=== PATIENT | male | born 1940 | race Caucasian/White ===

== ENCOUNTER 2023-09-22 10:14 | Emergency (ER) | payer MEDICARE, SELFPAY ==
[2023-09-22 10:18] VITALS: BP 175/82
[2023-09-22 10:41] LABS: % Basophils 0.6 % (0-2); % Eosinophils 2.9 % (0-6); % Immature Granulocytes 0.4 % (0-0.5); % Lymphocytes 26.4 % (20.5-51.1); % Monocytes 11.2 % (1.7-9.3); % Neutrophils 58.5 % (42.2-75.2); Absolute Eosinophils 0.2 10^3/uL (0-0.7); Absolute Lymphocytes 1.4 10^3/uL (1.2-3.4); Absolute Monocytes 0.6 10^3/uL (0.1-0.6); Hematocrit 41.4 % (39.0-52.0); Hemoglobin 15.4 g/dL (13.0-18.0); Mean Corp Hgb Conc. 37.2 g/dL (33.0-37.0); Mean Corpuscular Hgb 33.7 pg (27.0-31.0); Mean Corpuscular Volume 90.6 fL (80.0-94.0); Mean Platelet Volume 8.4 fL (7.4-10.4); Nucleated Red Blood Cells % 0 % (-); Platelet Count 110 10^3/uL (130-400); Red Blood Cell Count 4.57 10^6/uL (4.70-6.10); Red Cell Dist. Width 13.2 % (11.5-14.5); White Blood Cell Count 5.2 10^3/uL (4.8-10.8)
[2023-09-22 10:56] LABS: ALT (SGPT) 26 U/L (0-50); AST (SGOT) 30 U/L (17-59); Albumin 4.3 g/dl (3.5-5.0); Alkaline Phosphatase 66 U/L (38-126); Blood Urea Nitrogen 11 mg/dl (9-20); Calcium 9.2 mg/dl (8.4-10.2); Carbon Dioxide 27 mmol/L (22-30); Chloride 105 mmol/L (98-107); Glucose 99 mg/dl (70-99); Potassium 4.5 mmol/L (3.5-5.1); Sodium 137 mmol/L (135-145); Total Protein 7.3 g/dl (6.3-8.2); eGFR > 60.00
[2023-09-22 11:06] LABS: Troponin I < 0.012 ng/ml
--- NOTE | 2023-09-22 16:05 | ED.GENMED ---
History of Present Illness
<Kitty oLpez PA-C - Last Filed: 09/24/23 11:48>
General
Chief Complaint: Chest Pain
Source: patient and spouse
Exam Limitations: none
Time Seen by Provider: 09/22/23 15:36
Nursing documentation reviewed up to this point in time: agreed with
Travel History
Have you had any contact with someone who has COVID-19?: No
Do you have any symptoms of coronavirus? Fever > 100 degrees, chills, cough, shortness of breath, sore throat, loss of taste or smell, muscle aches, or headache?: No
History of Present Illness
History of Present Illness:
Patient is an 82-year-old male with history CAD status post triple bypass in 2005 presenting for evaluation of left-sided chest discomfort. Patient states he initially noticed symptoms this morning around 8:30 AM while he was in the shower. He
describes a pressure type pain in his left chest with some tingling down into his left arm. He sat on a chair to rest and then decided to come to the emergency department for evaluation. Patient states symptoms are ongoing for approximately 3
hours. He denies any associated shortness of breath, back pain, dizziness, diaphoresis, weakness, or nausea/vomiting.
Patient denies any exertional or pleuritic component to pain. Patient denies any recent exertional chest pain.
Of note�patient did have a triple bypass surgery 2005. The blockages found during an outpatient stress test and therefore he was asymptomatic at that time and unable to compare that event to symptoms that occurred this morning.
Past History
<Kitty Lopez PA-C - Last Filed: 09/24/23 11:48>
Past History
ED Past Medical History: CAD and Other (Hyperlipidemia, BPH, CAD, CABG,)
ED Past Surgical History: Cardiac
Social History
Tobacco: Non-smoker
Drug: None
Personal:
Living: with family
Employment: Retired
Review of Systems
<Kitty Lopez PA-C - Last Filed: 09/24/23 11:48>
Review of Systems
Allergies reviewed?: Yes
All Other Systems: ROS reviewed and negative except as documented in HPI and ROS
Phy Exam
<Kitty Lopez PA-C - Last Filed: 09/24/23 11:48>
Physical Exam
Physical Exam:
Vitals: Patient's vital signs are stable. Afebrile
General: Patient is well appearing, no acute distress
Skin: Warm and dry, no rashes or lesions
Head: Normocephalic, atraumatic
Eyes: Sclera nonicteric. EOMs intact. No nystagmus.
Throat: Protecting airway. Uvula midline
Neck: Normal ROM, no cervical spine tenderness, no meningismus
Cardiac: Regular rate and rhythm, no murmurs. Anterior chest wall nontender to palpation
Pulm: Normal respiratory effort, no wheezes, rales, rhonchi heard on exam.
Abdomen: No abdominal tenderness.
Extremities: No evidence of cyanosis or edema. Good distal pulses in bilateral upper and lower extremities
Neuro: AAOx3. CN II-XII intact. No focal neurologic deficits.
Psychiatric: Normal affect.
Scores
<Kitty Lopez PA-C - Last Filed: 09/24/23 11:48>
Heart Score for Chest Pain Patients
STEMI patient?: No
History: Moderately Suspicious
ECG: Normal
Age: >/= 65 years
Risk Factors: >/= 3 Risk Factors or History of CAD
Troponin: </= Normal Limit
Heart Score for Chest Pain Patients: 5
Heart Score Risk: 20.3% MACE over next 6 weeks
Course
<Kitty Lopez PA-C - Last Filed: 09/24/23 11:48>
Orders/Labs/Results
Orders:
Orders
09/22/23 10:18
Electrocardiogram (*1) Urgent
Reason for Study: Chest Pain
EKG- Treatment ONCE
09/22/23 10:28
CMP [Comprehensive Metabolic Panel] Urgent
Complete Blood Count/With Diff Urgent
Troponin I Urgent
09/22/23 16:09
Troponin I Urgent
09/22/23 16:20
CARDIOLOGY CONSULT Urgent
Consulting Provider: Balta Courtney
Was physician already notified: Yes
09/22/23 16:48
Lisinopril [Zestril] 5 mg PO NOW STA
Abnormal Lab Results
09/22/23
10:28
RBC 4.57 L 10^6/uL
(4.70-6.10)
MCH 33.7 H pg
(27.0-31.0)
MCHC 37.2 H g/dL
(33.0-37.0)
Plt Count 110 L 10^3/uL
(130-400)
Monocytes % 11.2 H %
(1.7-9.3)
09/22/23 10:28
09/22/23 10:28
Vital Signs
Initial and Last Documented VS:
Initial Vital Signs
Temp Pulse Resp BP Pulse Ox
98.2 F 61 16 175/82 99
09/22/23 10:18 09/22/23 10:18 09/22/23 10:18 09/22/23 10:18 09/22/23 10:18
Last Documented Vital Signs
Temp Pulse Resp BP Pulse Ox
98.2 F 61 16 158/80 99
09/22/23 10:18 09/22/23 10:18 09/22/23 10:18 09/22/23 17:05 09/22/23 10:18
<Nick Rubin, DO - Last Filed: 09/22/23 23:24>
Orders/Labs/Results
Orders:
Orders
09/22/23 10:18
Electrocardiogram (*1) Urgent
Reason for Study: Chest Pain
EKG- Treatment ONCE
09/22/23 10:28
CMP [Comprehensive Metabolic Panel] Urgent
Complete Blood Count/With Diff Urgent
Troponin I Urgent
09/22/23 16:09
Troponin I Urgent
09/22/23 16:20
CARDIOLOGY CONSULT Urgent
Consulting Provider: Balta Courtney
Was physician already notified: Yes
09/22/23 16:48
Lisinopril [Zestril] 5 mg PO NOW STA
Abnormal Lab Results
09/22/23
10:28
RBC 4.57 L 10^6/uL
(4.70-6.10)
MCH 33.7 H pg
(27.0-31.0)
MCHC 37.2 H g/dL
(33.0-37.0)
Plt Count 110 L 10^3/uL
(130-400)
Monocytes % 11.2 H %
(1.7-9.3)
09/22/23 10:28
09/22/23 10:28
Vital Signs
Initial and Last Documented VS:
Initial Vital Signs
Temp Pulse Resp BP Pulse Ox
98.2 F 61 16 175/82 99
09/22/23 10:18 09/22/23 10:18 09/22/23 10:18 09/22/23 10:18 09/22/23 10:18
Last Documented Vital Signs
Temp Pulse Resp BP Pulse Ox
98.2 F 61 16 158/80 99
09/22/23 10:18 09/22/23 10:18 09/22/23 10:18 09/22/23 17:05 09/22/23 10:18
<Kitty Lopez PA-C - Last Filed: 09/24/23 11:48>
MDM/Problems Addressed
Differential Diagnosis Includes:
Not limited to: Muscular strain, GERD, unstable angina, myocarditis, pericarditis, pneumonia, PE
MDM/Problems Addressed:
82 male with hx CAD s/p triple bypass in 2005 presenting with episode of left sided chest discomfort associated with left arm tingling lasting approximately 3 hours earlier today. No associated SOB, nausea, dizziness, back pain. No clear exertional
or pleuritic component of pain. Patient asymptomatic at this time. Patient hypertensive, otherwise vital signs stable. Exam as above. Patient well appearing in no apparent distress. Heart rate and rhythm regular. Lungs clear. Good distal pulses. EKG
shows sinus bradycardia with rate of 59 and no acute ischemic changes. Labs obtained in triage reviewed. No clinically significant abnormalities. Initial troponin negative. Will repeat troponin and have cardiology consult given his cardiac history.
Repeat troponin negative. Spoke with cardiology, Dr. Courtney who was in to see patient. Recommends discharge with outpatient stress echo. Plan to start lisinopril 5mg QD for HTN. Patient remains asymptomatic. Return precautions discussed at length.
He will follow-up with cardiology.
Chronic conditions affecting care:
CAD, hypertension, hyperlipidemia
Acute Exacerbation and/or Progression of Chronic Illness:
N/A
<Kitty Lopez PA-C - Last Filed: 09/24/23 11:48>
*Pulse Oximetry
Patient hypoxic: no
*EKG
Interpreted by ED Provider?: Yes
EKG Intrepretation Date: 09/22/23
Interpretation: abnormal
Comparison EKG: no changes
Heart Rate: 59
Rate: bradycardiac
Rhythm: sinus
[place]: normal axis
QRS Pattern: normal QRS
Ischemia: no ischemia
*Spanish Tutor Interpretation
Rate: normal
Interpretation: normal
Heart Rate: 60
Rhythm: sinus
*Critical Care Note
Total Time (30-74mins, 75-104mins- exclusive of procedures): Not Applicable
<Kitty Lopez PA-C - Last Filed: 09/24/23 11:48>
Patient Management
Discussion with other providers: Brim Buster (Cardiology -Dr. Courtney)
ED Attending Note
<Kitty Lopez PA-C - Last Filed: 09/24/23 11:48>
-
Portions of this chart may have been created with voice recognition software.� Occasional wrong word or��sound alike� substitutions may have occurred due to the inherent limitations of voice recognition software.
<Nick Rubin, - Last Filed: 09/22/23 23:24>
ED Attending Note
Patient seen and examined by attending physician: Yes
I performed a history and physical exam of patient and discussed management with resident, I reviewed resident's note and agree with documented findings and plan of care.: Yes
ED Attending Note:
I have reviewed and agree with history and treatment plan by Kitty Lopez. My exam revealed 82-year-old male no acute distress
Physical Exam
General: no apparent distress, not acutely ill
Neck: supple. no meningeal signs. normal posterior pharynx
Heart: s1/s2 regular rate and rhythm, no murmur. equal radial
pulses.
HEENT: Pupils equal round reactive to light, EOMI
Lungs: no acute respiratory distress. clear bilaterally
Abdomen: normal bowel sounds. not tender. no CVAT
Neuro: alert and oriented. no focal neurological deficits cranial nerves II through XII intact
Skin: no rash
Psychiatric: well kept. interactive and cooperative
Extremities: no edema. no calf tenderness. negative homans. good distal pulses
Serial troponins negative. Discussed with Dr. Courtney who saw patient. Stable for discharge.
Discharge Plan
Departure
Patient Disposition: Home (Routine Discharge)
Date of Disposition: 09/22/23
Time of Disposition: 17:28
Patient with high blood pressure during this ER visit?: Yes
Condition: Good
Discharge Problem:
Chest pain
Instructions: Chest Pain, Adult ED
Prescriptions:
New
lisinopril 5 mg tablet
5 mg PO DAILY Qty: 30 0RF
No Action
simvastatin 40 MG tablet
40 mg PO QPM
esomeprazole magnesium [Nexium] 40 MG capsule,delayed release(DR/EC)
40 mg PO QPM
metoprolol tartrate 25 MG tablet
25 mg PO BID
calcium carbonate-vitamin D3 [Oyster Shell Calcium-Vit D3] 500 MG tablet
1 tab PO DAILY
Patient Comments:
500 mg
niacin 500 MG tablet
500 mg PO QPM
aspirin 81 MG tablet,chewable
81 mg PO DAILY
Patient Comments:
patient states that this was stopped 'a while ago in preparation for TURP' - estimated 02/17/12
multivitamin with folic acid [Tab-A-Anthony] 1 TABLET tablet
1 tab PO DAILY
Referrals:
Logan Barros I., [Family Provider] -
Job Castro MD [Active] - Call in 1-3 days for appt
Activity Restrictions/Additional Instructions:
RETURN TO THE EMERGENCY DEPARTMENT WITH ANY CHEST PAIN, SHORTNESS OF BREATH, DIZZINESS/LIGHTHEADEDNESS, WORSENING IN CURRENT SYMPTOMS OR ANY OTHER CONCERNS
-A prescription for lisinopril is been sent to your pharmacy. You should take this once a day for blood pressure management.
-As discussed�you should follow-up with your medical staff manager in the next few days to schedule an outpatient echo stress test.
-It is important to monitor your symptoms closely. Please return to the emergency department if symptoms return or with any other concerns.
Interventions
Interventions:
*Risk Screen - Suicide Last Done: 09/22/23 16:12
*General Assessment Last Done: 09/22/23 16:12
*Neglect/Abuse Screening Last Done: 09/22/23 16:12
ED- Fall Risk Assessment Last Done: 09/22/23 17:40
*ED COVID-19 Vaccine History Last Done: 09/22/23 10:18
*Nursing Disposition Last Done: 09/22/23 17:40
ED- Cardiac Assessment Last Done: 09/22/23 16:12
Discharge Date and Time
Discharge Date/Time: 09/22/23 17:41
Print Language: TAJIK
[2023-09-22 16:11] VITALS: BP 158/80
[2023-09-22 16:45] LABS: Troponin I < 0.012 ng/ml
--- NOTE | 2023-09-22 16:49 | CON.CAR ---
Addendum entered and electronically signed by Balta Courtney MD 09/22/23 17:24:
Patient seen and examined in collaboration with CAMPAIGN MARKETING MANAGER; agree with below.
-82-year-old male with known coronary artery disease status-(previous CABG in 2005 and normal stress test less than 2 years ago) presenting with chest pain.
-No objective signs for ACS at this time; EKG is unremarkable and cardiac enzymes are negative x 2 sets--patient states that the chest pain occurred after a shower and lasted for 4 hours (nonexertional).
-Will arrange an outpatient echocardiogram and stress test to be performed later this week.
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
-Continue other cardiac medications.
-Discussed with the ER Attending/PA, who will discharge patient to home today.
-Outpatient follow-up with Cardiology will be arranged.
Original Note:
Consultation
Consultation Request
Date/Time Consultation Requested: 09/22/2023 16:20
Date/Time Consultation Performed: 09/22/2023 16:20
Requesting Provider: CONNOR Lopez
Performing Provider: CAESAR Kidd for Dr. Courtney
Reason for Consultation: Chest pain
Medical History
-
Chief Complaint: Chest pain
History of Present Illness:
Patient is an 82-year-old male (formally known to Dr. Mas), with coronary artery disease (CABG 2005), hypertension, dyslipidemia, BPH, and former smoker who presented to the emergency department with a chief complaint of chest pain. He woke up
and felt in his usual state of health without any complaints. He had breakfast. He then took a shower. After showering and shaving he was sitting on the couch when he had the sudden onset of left sided tightness. He reports it felt deep inside
of his chest. It was behind his left breast. He felt like his left arm was 'asleep'. He did not have any nausea, vomiting, dizziness, nor diaphoresis with this. It was ongoing for nearly 4 hours and spontaneously and slowly resolved. He is
chest pain-free at the time of this consultation.
Past Medical History
Past Medical History: CAD, HTN and Hypercholesterolemia
Past Surgical History: Cardiac and Urological
Social History
Tobacco: Former Smoker
Personal:
Living: With Family
Employment: Retired
Family History
Family History: Reviewed & Not Pertinent
Allergies / Home Medications
Allergy/AdvReac Type Severity Reaction Status Date / Time
No Known Allergies Allergy Verified 03/30/19 09:10
�Medication �Instructions �Recorded �Confirmed �Type
calcium carbonate 500 mg-vitamin 1 tab PO DAILY Supplement 03/09/12 10/17/21 History
D3 5 mcg (200 unit) tablet (Oyster
Shell Calcium-Vitamin D3)
esomeprazole magnesium 40 mg 40 mg PO QPM Gastrointestinal issue 03/09/12 10/17/21 History
capsule,delayed release (Nexium)
metoprolol tartrate 25 mg tablet 25 mg PO BID Blood pressure 03/09/12 10/17/21 History
niacin 500 mg tablet 500 mg PO QPM High cholesterol 03/09/12 10/17/21 History
simvastatin 40 mg tablet 40 mg PO QPM High cholesterol 03/09/12 10/17/21 History
aspirin 81 mg chewable tablet 81 mg PO DAILY Blood clot 03/16/12 10/17/21 History
prevention/tx
multivitamin with folic acid 400 1 tab PO DAILY Supplement 10/17/21 10/17/21 History
mcg tablet (Tab-A-Anthony)
Review of Systems
-
History Source: Patient
All other systems: Negative unless noted
Constitutional: No Symptoms
Respiratory: No Symptoms
Cardiac: No Symptoms
Abdomen/GI: No Symptoms
Physical Exam
Vital Signs
Temp Pulse Resp BP Pulse Ox
98.2 F 61 16 158/80 99
09/22/23 10:18 09/22/23 10:18 09/22/23 10:18 09/22/23 16:11 09/22/23 10:18
Lab Results
09/22/23 10:28
09/22/23 10:28
Troponin I < 0.012 ng/ml 09/22/23 16:09
Physical Exam
General: Well Developed, Well Nourished, No Apparent Distress and Comfortable
HEENT: Normocephalic, Anicteric and Moist Mucous Membranes
Respiratory: Clear and Non Labored Respirations
Cardiac: S1/S2 and Regular Rhythm
Breast: Deferred by me
GI: Soft, Non Tender, Non Distended and Normal Bowel Sounds
Rectal: Deferred by Provider
Musculoskeletal: No Clubbing, No Cyanosis and No Edema
Skin: Warm and Dry
Neuro: AO x 3
Hematologic/Lymphatic: No Lymphadenopathy
Psych: Calm
Impression / Plan
-
Chest pain
-Chest pain-free, slowly got better without intervention
-Troponin < 0.012 x 2 despite 4 hours of chest pain
-EKG stable
CAD
-CABG 2005, continue aspirin, statin, and beta-osvaldo
-Lexiscan nuclear stress test in 2021 showed normal perfusion imaging
HTN
-BP above goal
-Norvasc 10mg caused LE edema in the past
-Start lisinopril 5 mg daily, he will keep a BP log
HLD, most recent LDL 60, continue simvastatin, he did not tolerate high intensity statin in the past
BPH s/p TURP 2012
Data Reviewed
-
EKG: Report Reviewed by me (Sinus bradycardia, rate 59)
Medical Tests (Nuc Med, Echo etc): Report Reviewed by me (Rosemary nuke 11/2021: Normal perfusion imaging)
Labs: Labs Reviewed by me
Old Records: Reviewed (Outpatient cardiology notes)
[2023-09-22] MEDS: ZESTRIL 5 MG PO (17:05)
== END 2023-09-22 17:41 | disposition home or self-care (01) ==
LOC: EMR 10:14
PROVIDERS: Emergency Medicine; Registered Nurse; CONSULT PHYSICIAN Internal Medicine; EMERGENCY PHYSICIAN Emergency Medicine; FAMILY PHYSICIAN Internal Medicine
DX: R07.89 Other chest pain (principal); E78.00 Pure hypercholesterolemia, unspecified; N40.0 Benign prostatic hyperplasia without lower urinary tract symptoms; I25.10 Atherosclerotic heart disease of native coronary artery without angina pectoris; I10 Essential (primary) hypertension; Z79.82 Long term (current) use of aspirin; Z79.899 Other long term (current) drug therapy; Z83.49 Family history of other endocrine, nutritional and metabolic diseases; Z87.891 Personal history of nicotine dependence; Z95.1 Presence of aortocoronary bypass graft
CPT/HCPCS: 99283; 80053; 84484; 85025; 93005

== ENCOUNTER → 2023-09-30 12:05 | Outpatient (REF) | payer MEDICARE, SELFPAY | LOC: DHCBC/DCA 12:05 | PROVIDERS: ATTENDING PHYSICIAN Nurse Practitioner Gerontology; FAMILY PHYSICIAN Internal Medicine | DX: I25.10 Atherosclerotic heart disease of native coronary artery without angina pectoris (principal); R07.9 Chest pain, unspecified | CPT/HCPCS: 78452; 93017; A9500; J2785 ==

== ENCOUNTER → 2024-03-23 14:07 | Outpatient (REF) | payer MEDICARE, SELFPAY | LOC: RAD 14:07 | PROVIDERS: ATTENDING PHYSICIAN Specialist; FAMILY PHYSICIAN Internal Medicine | DX: R10.10 Upper abdominal pain, unspecified (principal); N20.0 Calculus of kidney | CPT/HCPCS: 74018 ==

== ENCOUNTER → 2024-03-25 13:50 | Outpatient (REF) | payer MEDICARE, SELFPAY | LOC: RAD 13:50 | PROVIDERS: ATTENDING PHYSICIAN Specialist; FAMILY PHYSICIAN Internal Medicine | DX: R10.10 Upper abdominal pain, unspecified (principal); N20.0 Calculus of kidney | CPT/HCPCS: 74176 ==

== ENCOUNTER → 2024-08-18 10:35 | Outpatient (REF) | payer MEDICARE, SELFPAY | LOC: RAD 10:35 | PROVIDERS: ATTENDING PHYSICIAN Internal Medicine | DX: J98.8 Other specified respiratory disorders (principal) | CPT/HCPCS: 71046 ==

== ENCOUNTER → 2024-11-24 08:10 | Outpatient (REF) | payer MEDICARE, SELFPAY ==
[2024-11-24 09:29] LABS: Hematocrit 43.0 % (39.0-52.0); Hemoglobin 15.0 g/dL (13.0-18.0); Mean Corp Hgb Conc. 34.9 g/dL (33.0-37.0); Mean Corpuscular Volume 94.9 fL (80.0-94.0); Nucleated Red Blood Cells % 0 % (-); Platelet Count 140 10^3/uL (130-400); Red Cell Dist. Width 13.0 % (11.5-14.5)
[2024-11-24 10:20] LABS: ALT (SGPT) 21 U/L (0-50); AST (SGOT) 24 U/L (17-59); Albumin 4.4 g/dl (3.5-5.0); Alkaline Phosphatase 63 U/L (38-126); Blood Urea Nitrogen 11 mg/dl (9-20); Calcium 9.2 mg/dl (8.4-10.2); Carbon Dioxide 26 mmol/L (22-30); Chloride 107 mmol/L (98-107); Glucose 106 mg/dl (70-99); HDL Cholesterol 43 mg/dl; LDL Cholesterol, Calculated 72 mg/dl; Potassium 4.6 mmol/L (3.5-5.1); Sodium 141 mmol/L (135-145); Total Protein 7.4 g/dl (6.3-8.2); Very Low Density Lipoprotein 17 mg/dl (0-30); eGFR > 60.00
[2024-11-24 11:53] LABS: PSA, Total - Screen 3.46 ng/ml (0.0-4.0)
== END ==
LOC: REG 08:10
PROVIDERS: ATTENDING PHYSICIAN Internal Medicine
DX: I10 Essential (primary) hypertension (principal); I25.10 Atherosclerotic heart disease of native coronary artery without angina pectoris; Z95.1 Presence of aortocoronary bypass graft; E78.2 Mixed hyperlipidemia; R73.9 Hyperglycemia, unspecified; Z12.5 Encounter for screening for malignant neoplasm of prostate
CPT/HCPCS: 36415; 80053; 80061; 84443; 85025; G0103

== ENCOUNTER 2024-12-15 14:50 | Emergency (ER) | payer MEDICARE, SELFPAY ==
[2024-12-15 15:00] VITALS: BP 170/81
[2024-12-15 16:36] VITALS: BMI 27.5
[2024-12-15 16:41] VITALS: BP 172/78
--- NOTE | 2024-12-15 16:41 | ED.GENMED ---
History of Present Illness
General
Chief Complaint: Rectal Bleeding
Source: patient
Exam Limitations: none
Time Seen by Provider: 12/15/24 16:28
History of Present Illness
History of Present Illness:
See MDM
Past History
Past History
ED Past Medical History: CAD and Other (Hyperlipidemia, BPH, CAD, CABG,)
ED Past Surgical History: Cardiac
Social History
Tobacco: Non-smoker
Drug: None
Personal:
Living: with family
Employment: Retired
Phy Exam
Physical Exam
Physical Exam:
See MDM
Course
Orders/Labs/Results
Orders:
Orders
12/15/24 16:40
CT Abd/pelvis W Iv Cont Urgent
Comment:
Reason For Exam: bright rectal bleeding
12/15/24 16:53
Complete Blood Count/With Diff Urgent
Comprehensive Metabolic Panel Urgent
Abnormal Lab Results
12/15/24
16:53
RBC 4.52 L 10^6/uL
(4.70-6.10)
MCH 33.2 H pg
(27.0-31.0)
Absolute Monos (auto) 0.8 H 10^3/uL
(0.1-0.6)
Monocytes % 11.8 H %
(1.7-9.3)
Glucose 101 H mg/dl
(70-99)
12/15/24 16:53
12/15/24 16:53
Vital Signs
Initial and Last Documented VS:
Initial Vital Signs
Temp Pulse Resp BP Pulse Ox
98.4 F 67 16 170/81 98
12/15/24 15:00 12/15/24 15:00 12/15/24 15:00 12/15/24 15:00 12/15/24 15:00
Last Documented Vital Signs
Temp Pulse Resp BP Pulse Ox
98.4 F 66 17 156/77 100
12/15/24 15:00 12/15/24 18:01 12/15/24 18:01 12/15/24 18:01 12/15/24 18:01
MDM/Problems Addressed
Differential Diagnosis Includes:
Note:
CHIEF COMPLAINT(S)
Rectal bleeding.
HISTORY OF PRESENT ILLNESS
The patient is an 84-year-old male who presents with rectal bleeding. The patient reports that for the past week, he has experienced excessive gas and a significant amount of mucus with his bowel movements. The most recent episode included bright
red blood, which 'splattered' in the toilet, characterized by the patient as an 'explosion.' The patient does not report any associated pain. There is a history of diverticulosis. The patients last colonoscopy was performed in 2022, where a polyp
was identified and removed, and he has been advised against the need for frequent colonoscopies due to age. The patient is not on any blood thinners.
PHYSICAL EXAM
General: Alert, no acute distress.
Skin: Warm, dry.
Head: Normocephalic, atraumatic
Neck: Appears supple, trachea midline.
Eyes, Ears, Nose, Mouth, and Throat: Oral mucosa moist.
Cardiovascular: No signs of cyanosis
Respiratory: Respirations are non-labored.
Abdomen: Non-distended. Soft nontender
Rectal: Small amount of gross blood noted on rectal exam.
Musculoskeletal: No deformities
Neurological: No focal neurological deficit observed.
Psychiatric: Cooperative, appropriate mood and affect.
PROBLEM LIST
Acute Problems:
1. Rectal bleeding.
2. Diverticulosis.
CHRONIC MEDICAL CONDITIONS SIGNIFICANTLY AFFECTING CARE
Diverticulosis.
PLAN
1. Perform a computed tomography scan with intravenous contrast to evaluate the presence and extent of diverticular disease or any potential complications.
2. Conduct laboratory tests including a complete blood count (CBC) and a chemistry panel. Prepare for type and screen in case a blood transfusion is necessary. Coagulation studies will also be performed as precautionary.
3. Monitor for any further episodes of bleeding during the hospital stay to determine the need for any invasive interventions or potential discharge criteria.
4. Educate the patient about diverticulosis and discuss lifestyle modifications, including dietary changes to increase fiber intake.
DIFFERENTIAL DIAGNOSIS
The differential diagnosis includes, in no particular order and is not limited to:
1. Diverticulosis with bleeding
2. Diverticulitis
3. Hemorrhoids
4. Colonic polyps
5. Colorectal carcinoma
6. Angiodysplasia
7. Inflammatory bowel disease
8. Gastrointestinal infection
9. Ischemic colitis
10. Rectal varices
Update: CT consistent with diverticulosis. I had a long discussion with the patient and in regards to admission versus discharge. They feel comfortable being discharged. Patient has had no recurrent episodes. We discussed stool softeners
and return precautions. Discussed follow-up with GI in the outpatient setting. They understand that they should return if symptoms persist
*Pulse Oximetry
SaO2: 98
Oxygen Mode of Delivery: Room air
Patient hypoxic: no
*Critical Care Note
Total Time (30-74mins, 75-104mins- exclusive of procedures): Not Applicable
ED Attending Note
-
Portions of this chart may have been created with voice recognition software.� Occasional wrong word or��sound alike� substitutions may have occurred due to the inherent limitations of voice recognition software.
Discharge Plan
Departure
Patient Disposition: Home (Routine Discharge)
Date of Disposition: 12/15/24
Time of Disposition: 19:00
Patient with high blood pressure during this ER visit?: Yes
Discharge Problem:
Diverticulosis
Instructions: Diverticulosis (DC)
Prescriptions:
No Action
simvastatin 40 MG tablet
40 mg PO QPM
esomeprazole magnesium [Nexium] 40 MG capsule,delayed release(DR/EC)
40 mg PO QPM
metoprolol tartrate 25 MG tablet
25 mg PO BID
calcium carbonate-vitamin D3 [Oyster Shell Calcium-Vit D3] 500 MG tablet
1 tab PO DAILY
Patient Comments:
500 mg
niacin 500 MG tablet
500 mg PO QPM
aspirin 81 MG tablet,chewable
81 mg PO DAILY
Patient Comments:
patient states that this was stopped 'a while ago in preparation for TURP' - estimated 02/17/12
multivitamin with folic acid [Tab-A-Anthony] 1 TABLET tablet
1 tab PO DAILY
lisinopril 5 mg tablet
5 mg PO DAILY Qty: 30 0RF
Referrals:
Logan Barros DO [Family Provider, Internal Medicine]
Eugene Mcpherson MD [Active, Gastroenterology]
Activity Restrictions/Additional Instructions:
Please return for any worsening symptoms.
You may return at any time if you have further concerns.
Please follow up with your doctor at the first available appointment, preferably this week.
Please make an appointment to see the graphic design manager.
Thank you for choosing [facility].
Interventions
Interventions:
*Risk Screen - Suicide Last Done: 12/15/24 15:00
*General Assessment Last Done: 12/15/24 16:42
*Neglect/Abuse Screening Last Done: 12/15/24 15:00
*ED- Fall Risk Assessment Last Done: 12/15/24 16:42
*ED COVID-19 Vaccine History Last Done: 12/15/24 16:42
UA-Cdclqj-[place] Assessment Last Done: 12/15/24 16:54
ED- Cardiac Assessment Last Done: 12/15/24 16:54
ED- Pulmonary Assessment Last Done: 12/15/24 16:54
Discharge Date and Time
Print Language: SLOVENIAN
[2024-12-15 17:00] VITALS: BP 157/74
[2024-12-15 17:10] LABS: Hematocrit 41.1 % (39.0-52.0); Hemoglobin 15.0 g/dL (13.0-18.0); Mean Corp Hgb Conc. 36.5 g/dL (33.0-37.0); Mean Corpuscular Volume 90.9 fL (80.0-94.0); Nucleated Red Blood Cells % 0 % (-); Platelet Count 160 10^3/uL (130-400); Red Cell Dist. Width 12.8 % (11.5-14.5)
[2024-12-15 17:25] LABS: ALT (SGPT) 23 U/L (0-50); AST (SGOT) 31 U/L (17-59); Albumin 4.5 g/dl (3.5-5.0); Alkaline Phosphatase 68 U/L (38-126); Blood Urea Nitrogen 12 mg/dl (9-20); Calcium 8.5 mg/dl (8.4-10.2); Carbon Dioxide 25 mmol/L (22-30); Chloride 105 mmol/L (98-107); Estimated Creatinine Clearance 83 ml/min; Glucose 101 mg/dl (70-99); Potassium 4.7 mmol/L (3.5-5.1); Sodium 135 mmol/L (135-145); Total Protein 7.3 g/dl (6.3-8.2); eGFR > 60.00
[2024-12-15 18:01] VITALS: BP 156/77
[2024-12-15 19:10] VITALS: BP 163/103
== END 2024-12-15 19:18 | disposition home or self-care (01) ==
LOC: EMR 14:50
PROVIDERS: EMERGENCY PHYSICIAN Student in an Organized Health Care Education/Training Program; FAMILY PHYSICIAN Internal Medicine
DX: K57.30 Diverticulosis of large intestine without perforation or abscess without bleeding (principal); I25.810 Atherosclerosis of coronary artery bypass graft(s) without angina pectoris; E78.5 Hyperlipidemia, unspecified; N40.0 Benign prostatic hyperplasia without lower urinary tract symptoms; Z95.1 Presence of aortocoronary bypass graft
CPT/HCPCS: 99284; 74177; 80053; 85025; Q9967